=== PATIENT | male | born 1940 | race Caucasian/White ===

== ENCOUNTER → 2017-11-23 | Outpatient (CLI) | payer OTHER ==
[~2017-11-23] MED LIST: ASPI-496 PO; ASPI-696 PO; ATOR20TA9 PO; CLOP75TA PO; DOCU-131 PO; FURO20TA3 PO; HYDR-3245 PO; METH750T87 PO; METO25TA35 PO; METO25TA35 PO/NG; METO25TA91 PO; METO50TA82 PO; MIRT15TA4 PO; MULT-224 PO; MULT-464; OMEP-110 PO; ONDA4TAB10 PO; OXYC5CAP2 PO; POTA10TA5 PO; PYRI60TA PO; SIMV40TA3 PO; TRAM-47 PO; TRAM50TA2 PO
== END | disposition home or self-care (01) ==
LOC: CVU 09:47
PROVIDERS: ATTEND Internal Medicine Cardiovascular Disease
DX: I34.8 Other nonrheumatic mitral valve disorders (principal); I37.1 Nonrheumatic pulmonary valve insufficiency; I25.2 Old myocardial infarction; Z87.891 Personal history of nicotine dependence
CPT/HCPCS: 93306

== ENCOUNTER 2018-02-19 13:23 | Observation (INO) | payer OTHER ==
[~2018-02-19] VITALS: Ht 170.2 cm; Wt 91.8 kg
[~2018-02-19 13:23] MED LIST changes: +ATOR20TA37 PO; -ATOR20TA9 PO
[2018-02-19 14:11] LABS: BASOPHILS % (AUTO) 1 % (0-1); EOSINOPHILS % (AUTO) 0 % (1-7); LYMPHOCYTES % (AUTO) 7 % (22-44); MEAN PLATELET VOLUME 7.6 fL (7.4-10.4); MONOCYTES % (AUTO) 7 % (2-9); NEUTROPHILS % (AUTO) 85 % (42-75); PLATELET COUNT 242 x10^3/uL (130-400); RED BLOOD COUNT 4.79 x10^6/uL (4.38-5.82); RED CELL DISTRIBUTION WIDTH 13.2 % (9.4-14.8)
[2018-02-19 14:12] LABS: BASOPHILS # (AUTO) 0.18 x10^3/uL (0-0.1); EOSINOPHILS # (AUTO) 0.01 x10^3/uL (0-0.4); LYMPHOCYTES # (AUTO) 1.17 x10^3/uL (1-3.4); MD NO; MONOCYTES # (AUTO) 1.06 x10^3/uL (0.2-0.8); NEUTROPHILS # (AUTO) 13.75 x10^3/uL (1.8-6.8)
[2018-02-19 14:19] LABS: ALBUMIN 4.1 g/dL (3.4-5.0); ANION GAP 9 mmol/L (5-15); CALCIUM 8.9 mg/dL (8.5-10.1); CHLORIDE 104 mmol/L (98-107); CREATININE 1.05 mg/dL (0.7-1.3)
[2018-02-19] MEDS ORDERED: SODIUM CHLORIDE FLUSH 10ML SYR IVF ONE (14:30)
[2018-02-19] MEDS ORDERED: MORPHINE SULFATE 4 MG/ML, 1ML ONE ×2 (14:42→16:37)
[2018-02-19] MEDS: MORPHINE SULFATE 4 MG/ML, 1ML IVPush PRN ×2 (14:44→16:47)
[2018-02-19] MEDS ORDERED: GADOBUTROL 10 MMOL/10 ML PFS ONE (15:00)
[2018-02-19] MEDS ORDERED: OMNIPAQUE 350 MG/ML, 100ML BOTTLE ONE (16:45)
[2018-02-19 16:51] LABS: MICROSCOPIC NOT IND
[2018-02-19 17:01] LABS: CULTURE INDICATED? NO
[2018-02-19] MEDS ORDERED: HYDROmorphone 2 MG/ML, 1ML ONE (18:03)
[2018-02-19] MEDS ORDERED: HYDROmorphone 2 MG/ML, 1ML IVPush PRN (18:30)
[2018-02-19] MEDS ORDERED: ACETAMINOPHEN 325 MG TABLET PO PRN (19:00)
[2018-02-19] MEDS ORDERED: ONDANSETRON 2MG/ML, 2ML IVPush PRN (19:00)
[2018-02-19] MEDS ORDERED: BISACODYL 10 MG SUPP PR PRN (19:00)
[2018-02-19 20:17] VITALS: BP 154/88
[2018-02-19] MEDS: FUROSEMIDE 20 MG TABLET PO SCH (20:59)
[2018-02-19] MEDS: SODIUM CHLORIDE FLUSH 10ML SYR IVF SCH (21:00)
[2018-02-19] MEDS: METOPROLOL TARTRATE 25 MG TABLET PO SCH (21:00)
[2018-02-19] MEDS: OMEPRAZOLE 20 MG CAPSULE.DR PO SCH (22:05)
[2018-02-19] MEDS: DOCUSATE 100 MG CAPSULE PO SCH (22:05)
[2018-02-19] MEDS: POTASSIUM CHLORIDE 10 MEQ TABLET.ER PO SCH (22:05)
[2018-02-19] MEDS: HEPARIN 5,000 UNITS/ML, 1ML SQ SCH (22:08)
[2018-02-20 01:38] VITALS: BP 144/78
[2018-02-20] MEDS: KETOROLAC 30 MG/1 ML IVPush PRN ×4 (03:50→22:33)
[2018-02-20 04:42] LABS: BASOPHILS % (AUTO) 2 % (0-1); EOSINOPHILS # (AUTO) 0.03 x10^3/uL (0-0.4); EOSINOPHILS % (AUTO) 0 % (1-7); LYMPHOCYTES # (AUTO) 2.16 x10^3/uL (1-3.4); LYMPHOCYTES % (AUTO) 25 % (22-44); MD NO; MEAN CORPUSCULAR HEMOGLOBIN 31.8 pg (27.5-34.5); MEAN CORPUSCULAR HGB CONC 33.9 g/dL (33.2-36.2); MEAN PLATELET VOLUME 7.4 fL (7.4-10.4); MONOCYTES # (AUTO) 0.98 x10^3/uL (0.2-0.8); MONOCYTES % (AUTO) 11 % (2-9); NEUTROPHILS # (AUTO) 5.43 x10^3/uL (1.8-6.8); NEUTROPHILS % (AUTO) 62 % (42-75); PLATELET COUNT 196 x10^3/uL (130-400); RED BLOOD COUNT 4.45 x10^6/uL (4.38-5.82); RED CELL DISTRIBUTION WIDTH 13.4 % (9.4-14.8)
[2018-02-20 04:52] LABS: CALCIUM 8.9 mg/dL (8.5-10.1); CHLORIDE 108 mmol/L (98-107)
[2018-02-20 04:58] LABS: ALANINE AMINOTRANSFERASE 33 U/L (12-78); ALBUMIN 3.4 g/dL (3.4-5.0); ALKALINE PHOSPHATASE 102 U/L (45-117); ANION GAP 6 mmol/L (5-15); BILIRUBIN,TOTAL 0.6 mg/dL (0.2-1.0); CREATININE 0.89 mg/dL (0.7-1.3); TOTAL PROTEIN 6.6 g/dL (6.4-8.2)
[2018-02-20] MEDS: HEPARIN 5,000 UNITS/ML, 1ML SQ SCH ×3 (05:32→22:33)
[2018-02-20 08:00] VITALS: BP 115/70
[2018-02-20] MEDS: OMEPRAZOLE 20 MG CAPSULE.DR PO SCH ×2 (10:04→20:36)
[2018-02-20] MEDS: FUROSEMIDE 20 MG TABLET PO SCH ×2 (10:05→16:27)
[2018-02-20] MEDS: MULTIVITAMIN 1 TABLET PO SCH (10:05)
[2018-02-20] MEDS: METOPROLOL TARTRATE 25 MG TABLET PO SCH ×2 (10:06→20:36)
[2018-02-20] MEDS: ASPIRIN 81 MG TABLET EC PO SCH (10:06)
[2018-02-20] MEDS: POTASSIUM CHLORIDE 10 MEQ TABLET.ER PO SCH ×2 (10:07→20:36)
[2018-02-20] MEDS: SODIUM CHLORIDE FLUSH 10ML SYR IVF SCH ×2 (10:08→20:36)
[2018-02-20] MEDS: DOCUSATE 100 MG CAPSULE PO SCH ×2 (10:08→20:36)
[2018-02-20] MEDS: METHOCARBAMOL 750 MG TABLET PO PRN ×2 (13:11→22:33)
[2018-02-20 14:44] LABS: TROPONIN I < 0.015 ng/mL (0.000-0.045)
[2018-02-20] MEDS: POLYETHYLENE GLYCOL 17 GM PACKET PO PRN (16:36)
[2018-02-20 19:30] VITALS: BP 144/91
[2018-02-20 19:51] LABS: TROPONIN I < 0.015 ng/mL (0.000-0.045)
[2018-02-21 02:59] VITALS: BP 135/75
[2018-02-21 03:20] VITALS: BP 100/68
[2018-02-21] MEDS: HEPARIN 5,000 UNITS/ML, 1ML SQ SCH ×3 (06:22→21:14)
[2018-02-21 06:57] VITALS: BP 93/56
[2018-02-21] MEDS: POTASSIUM CHLORIDE 10 MEQ TABLET.ER PO SCH ×2 (08:04→21:13)
[2018-02-21] MEDS: DOCUSATE 100 MG CAPSULE PO SCH ×2 (08:04→21:13)
[2018-02-21] MEDS: FUROSEMIDE 20 MG TABLET PO SCH ×3 (08:04→21:12)
[2018-02-21] MEDS: ASPIRIN 81 MG TABLET EC PO SCH (08:04)
[2018-02-21] MEDS: SODIUM CHLORIDE FLUSH 10ML SYR IVF SCH ×2 (08:04→21:12)
[2018-02-21] MEDS: OMEPRAZOLE 20 MG CAPSULE.DR PO SCH ×2 (08:04→21:13)
[2018-02-21] MEDS: MULTIVITAMIN 1 TABLET PO SCH (08:05)
[2018-02-21] MEDS: POLYETHYLENE GLYCOL 17 GM PACKET PO PRN (08:05)
[2018-02-21] MEDS: METOPROLOL TARTRATE 25 MG TABLET PO SCH ×2 (08:06→21:13)
[2018-02-21] MEDS: LIDOCAINE 4% CREAM 5GM TUBE TP SCH ×3 (10:32→21:14)
[2018-02-21] MEDS: GABAPENTIN 100 MG CAPSULE PO SCH ×2 (10:33→21:12)
[2018-02-21] MEDS: NAPROXEN 500 MG TABLET PO SCH ×2 (10:33→21:13)
[2018-02-21] MEDS: CYCLOBENZAPRINE 10 MG TABLET PO SCH ×2 (10:33→21:14)
[2018-02-21 12:12] VITALS: BP 125/75
[2018-02-21] MEDS: KETOROLAC 30 MG/1 ML IVPush PRN (18:13)
[2018-02-21 20:59] VITALS: BP 118/73
[2018-02-22 03:35] VITALS: BP 101/63
[2018-02-22] MEDS: HEPARIN 5,000 UNITS/ML, 1ML SQ SCH (05:24)
[2018-02-22 07:58] VITALS: BP 124/78
[2018-02-22] MEDS: NAPROXEN 500 MG TABLET PO SCH (10:31)
[2018-02-22] MEDS: ASPIRIN 81 MG TABLET EC PO SCH (10:31)
[2018-02-22] MEDS: MULTIVITAMIN 1 TABLET PO SCH (10:31)
[2018-02-22] MEDS: POTASSIUM CHLORIDE 10 MEQ TABLET.ER PO SCH (10:31)
[2018-02-22] MEDS: CYCLOBENZAPRINE 10 MG TABLET PO SCH (10:31)
[2018-02-22] MEDS: DOCUSATE 100 MG CAPSULE PO SCH (10:31)
[2018-02-22] MEDS: POLYETHYLENE GLYCOL 17 GM PACKET PO PRN (10:32)
[2018-02-22] MEDS: METOPROLOL TARTRATE 25 MG TABLET PO SCH (10:32)
[2018-02-22] MEDS: GABAPENTIN 100 MG CAPSULE PO SCH (10:32)
[2018-02-22] MEDS: FUROSEMIDE 20 MG TABLET PO SCH (10:32)
[2018-02-22] MEDS: OMEPRAZOLE 20 MG CAPSULE.DR PO SCH (10:32)
[2018-02-22] MEDS: LIDOCAINE 4% CREAM 5GM TUBE TP SCH (10:33)
[2018-02-22] MEDS: SODIUM CHLORIDE FLUSH 10ML SYR IVF SCH (10:33)
[2018-02-22] MEDS ORDERED: CYCL-259 PO (10:48)
[2018-02-22] MEDS ORDERED: NAPR-856 PO (10:48)
[2018-02-22] MEDS ORDERED: GABA-826 PO (10:48)
[2018-02-22] MEDS ORDERED: LIDO5CRE19 TP (10:48)
[2018-02-22 12:56] VITALS: BP 118/74
== END 2018-02-22 14:10 | disposition home or self-care (01) ==
LOC: ED 16:58 → INTOOBSV 17:52 → EDIP 17:52 → 3NW 18:29 → DCLOUNGE 02-22 13:40
PROVIDERS: ADMIT Family Medicine; ATTEND Family Medicine
DX: M48.56XA Collapsed vertebra, not elsewhere classified, lumbar region, initial encounter for fracture (principal); K21.9 Gastro-esophageal reflux disease without esophagitis; I11.0 Hypertensive heart disease with heart failure; I50.9 Heart failure, unspecified; I25.10 Atherosclerotic heart disease of native coronary artery without angina pectoris; Z95.1 Presence of aortocoronary bypass graft; Z86.73 Personal history of transient ischemic attack (TIA), and cerebral infarction without residual deficits; Z79.82 Long term (current) use of aspirin; Z79.899 Other long term (current) drug therapy
CPT/HCPCS: 36415; 72131; 72158; 74177; 80048; 80053; 81003; 82040; 84484; 85025; 85651; 93005; 96372; 96374; 96375; 96376; 97163; 99284; A9585; G0378; J1170; J1644; J1885; Q9967; 99285

== ENCOUNTER 2018-03-02 11:22 | Emergency (ER) | payer OTHER ==
[~2018-03-02] VITALS: Ht 170.2 cm; Wt 89.0 kg
[~2018-03-02 11:22] MED LIST changes: +CYCL-259 PO; +GABA-826 PO; +LIDO5CRE19 TP; +NAPR-856 PO
[2018-03-02 13:45] VITALS: BP 150/77
[2018-03-02] MEDS ORDERED: DEXAMETHASONE 4 MG/ML, 1ML IM ONE (14:00)
[2018-03-02] MEDS ORDERED: KETOROLAC 60 MG/2 ML IM ONE (14:00)
[2018-03-02] MEDS ORDERED: OXYcodone/APAP 10/325MG TABLET PO ONE (14:00)
[2018-03-02] MEDS ORDERED: OXYcodone/APAP 10/325MG TABLET ONE (14:03)
[2018-03-02] MEDS ORDERED: KETOROLAC 30 MG/1 ML ONE (14:03)
[2018-03-02] MEDS ORDERED: DEXAMETHASONE 4 MG/ML, 1ML ONE (14:05)
== END 2018-03-02 14:54 | disposition home or self-care (01) ==
LOC: ED 14:40
DX: S32.040A Wedge compression fracture of fourth lumbar vertebra, initial encounter for closed fracture (principal); I10 Essential (primary) hypertension; I25.10 Atherosclerotic heart disease of native coronary artery without angina pectoris; K21.9 Gastro-esophageal reflux disease without esophagitis; Z86.73 Personal history of transient ischemic attack (TIA), and cerebral infarction without residual deficits; Z95.1 Presence of aortocoronary bypass graft; Z98.61 Coronary angioplasty status; W18.30XA Fall on same level, unspecified, initial encounter; Y93.89 Activity, other specified; Y92.89 Other specified places as the place of occurrence of the external cause; Y99.8 Other external cause status
CPT/HCPCS: 72110; 73502; 96372; 99283; J1100; J1885

== ENCOUNTER → 2018-04-02 | Outpatient (CLI) | payer MEDICARE ==
[~2018-04-02] MED LIST changes: +ATOR40TA78 PO; +IRON PO; -MULT-224 PO; +MULT-642 PO; +NAPR-685 PO; +OXYC-432 PO; +POTA10TA12 PO
== END | disposition home or self-care (01) ==
LOC: RAD 12:34
PROVIDERS: ATTEND Neurological Surgery
DX: M80.88XA Other osteoporosis with current pathological fracture, vertebra(e), initial encounter for fracture (principal); Z53.9 Procedure and treatment not carried out, unspecified reason
CPT/HCPCS: 22515

== ENCOUNTER 2018-04-03 12:22 | Day surgery (SDC) | payer MEDICARE ==
[~2018-04-03] VITALS: Ht 170.2 cm; Wt 82.0 kg
[~2018-04-03 12:22] MED LIST changes: -ATOR40TA78 PO; -IRON PO; -NAPR-685 PO; -OXYC-432 PO; -POTA10TA12 PO
[2018-04-03] MEDS ORDERED: FENTANYL PF 250 MCG/5ML ONE (12:51)
[2018-04-03] MEDS ORDERED: LACTATED RINGERS 1,000 ML IV SCH (12:54)
[2018-04-03] MEDS ORDERED: LIDOCAINE-MPF 1%, 2ML INFIL ONE (13:00)
[2018-04-03] MEDS ORDERED: CEFAZOLIN 1,000 MG in SODIUM CHLORIDE 0.9% 50 ML IV SCH (13:00)
[2018-04-03] MEDS ORDERED: CEFAZOLIN 1,000 MG in SODIUM CHLORIDE 0.9% 50 ML IV ONE (13:00)
[2018-04-03 13:16] VITALS: BP 149/86
[2018-04-03] MEDS ORDERED: PLEASE ENTER HEIGHT AND WEIGHT MC SCH (13:30)
[2018-04-03] MEDS ORDERED: ATOR40TA78 PO (14:02)
[2018-04-03] MEDS ORDERED: POTA10TA12 PO (14:02)
[2018-04-03] MEDS ORDERED: NAPR-685 PO (14:02)
[2018-04-03] MEDS ORDERED: OXYC-432 PO (14:02)
[2018-04-03] MEDS ORDERED: METO25TA35 PO (14:02)
[2018-04-03] MEDS ORDERED: ASPI-496 PO (14:04)
[2018-04-03] MEDS ORDERED: FURO20TA3 PO (14:04)
[2018-04-03] MEDS ORDERED: IRON PO (14:06)
[2018-04-03] MEDS ORDERED: PROPOFOL 10 MG/ML, 20ML ONE (14:26)
[2018-04-03] MEDS ORDERED: CEFAZOLIN 1,000 MG ONE (14:26)
[2018-04-03] MEDS ORDERED: ONDANSETRON 2MG/ML, 2ML ONE (14:26)
[2018-04-03] MEDS ORDERED: EPHEDRINE 50 MG/ML, 1ML ONE (14:26)
[2018-04-03] MEDS ORDERED: DEXAMETHASONE 4 MG/ML, 1ML ONE (14:26)
[2018-04-03] MEDS ORDERED: SUCCINYLCHOLINE 20 MG/ML, 10ML ONE (14:26)
[2018-04-03] MEDS ORDERED: ROCURONIUM 10 MG/ML,10ML ONE (14:26)
[2018-04-03] MEDS ORDERED: LIDOCAINE-MPF 1%, 5ML ONE (14:48)
[2018-04-03] MEDS ORDERED: OXYcodone 5 MG/5 ML ORAL.SOL UDC ONE (15:53)
[2018-04-03] MEDS ORDERED: HYDROmorphone 2 MG/ML, 1ML IVPush PRN (16:00)
[2018-04-03] MEDS ORDERED: OXYcodone 5 MG/5 ML ORAL.SOL UDC PO PRN (16:00)
[2018-04-03] MEDS ORDERED: FENTANYL PF 100 MCG/2ML IV PRN (16:00)
[2018-04-03] MEDS ORDERED: LABETALOL 5MG/ML, 20ML IV PRN (16:00)
[2018-04-03] MEDS ORDERED: hydrALAzine 20 MG/ML, 1ML IV PRN (16:00)
[2018-04-03] MEDS ORDERED: ONDANSETRON 2MG/ML, 2ML IV PRN (16:00)
[2018-04-03] MEDS ORDERED: DIAZEPAM 5 MG/ML, 10ML VIAL IV ONE (16:00)
[2018-04-03] MEDS ORDERED: ONDANSETRON ODT 8 MG PO PRN (16:00)
[2018-04-03] MEDS ORDERED: ACETAMINOPHEN 325 MG TABLET PO PRN (16:00)
[2018-04-04 06:35] VITALS: BP 116/69
== END 2018-04-03 17:50 | disposition home or self-care (01) ==
LOC: OUT 12:22 → EDSTATUS 14:30 → 4NOR 16:54 → OUT 17:50
PROVIDERS: ATTEND Neurological Surgery
DX: M80.88XA Other osteoporosis with current pathological fracture, vertebra(e), initial encounter for fracture (principal); I25.10 Atherosclerotic heart disease of native coronary artery without angina pectoris; J44.9 Chronic obstructive pulmonary disease, unspecified; Z87.39 Personal history of other diseases of the musculoskeletal system and connective tissue; Z95.5 Presence of coronary angioplasty implant and graft; Z98.84 Bariatric surgery status; Z95.0 Presence of cardiac pacemaker; Z98.52 Vasectomy status; Z87.891 Personal history of nicotine dependence; Z72.89 Other problems related to lifestyle; Z79.82 Long term (current) use of aspirin
CPT/HCPCS: 22511; J0330; J0690; J1100; J2405; J2704; J3010; J3360; 22514; G0378

== ENCOUNTER → 2018-05-14 | Outpatient (CLI) | payer MEDICARE, MEDICAID ==
[~2018-05-14] MED LIST changes: +ATOR40TA78 PO; +IRON PO; +NAPR-685 PO; +OXYC-432 PO; +POTA10TA12 PO
== END | disposition home or self-care (01) ==
LOC: CFH 07:54
PROVIDERS: ATTEND Neurological Surgery
DX: M16.11 Unilateral primary osteoarthritis, right hip (principal); M81.0 Age-related osteoporosis without current pathological fracture; M54.5 Low back pain
CPT/HCPCS: 77080

== ENCOUNTER 2019-04-05 18:17 | Emergency (ER) | payer MEDICARE, MEDICAID ==
[~2019-04-05] VITALS: Ht 170.2 cm; Wt 89.0 kg
[~2019-04-05 18:17] MED LIST changes: +DICL75TA3 PO; -LIDO5CRE19 TP; +LIDO5CRE26 TP; +MIRT-34 PO; -MIRT15TA4 PO
--- NOTE | 2019-04-05 18:36 | NUR ---
PT BIB [facility] PT PRESENTED TO [facility] W C/O SINUS CONGESTION X 2 DAYS THAT DEVELOPED INTO R JAW PAIN NORMAL RESP TALKING IN COMPLETE SENTENCES
--- NOTE | 2019-04-05 19:02 | NUR ---
LAB AT BEDSIDE.
[2019-04-05 19:24] LABS: ALBUMIN 3.6 g/dL (3.4-5.0); ANION GAP 3 mmol/L (5-15); CALCIUM 8.9 mg/dL (8.5-10.1); CHLORIDE 108 mmol/L (98-107); CREATININE 0.88 mg/dL (0.7-1.3)
[2019-04-05 19:27] LABS: BASOPHILS # (AUTO) 0.03 x10^3/uL (0-0.1); BASOPHILS % (AUTO) 0 % (0-1); EOSINOPHILS # (AUTO) 0.36 x10^3/uL (0-0.4); EOSINOPHILS % (AUTO) 5 % (1-7); LYMPHOCYTES # (AUTO) 1.46 x10^3/uL (1-3.4); LYMPHOCYTES % (AUTO) 20 % (22-44); MD NO; MEAN CORPUSCULAR HEMOGLOBIN 31.4 pg (27.5-34.5); MEAN CORPUSCULAR HGB CONC 33.4 g/dL (33.2-36.2); MEAN CORPUSCULAR VOLUME 93.9 fL (81-97); MEAN PLATELET VOLUME 7.4 fL (7.4-10.4); MONOCYTES # (AUTO) 0.83 x10^3/uL (0.2-0.8); MONOCYTES % (AUTO) 11 % (2-9); NEUTROPHILS # (AUTO) 4.78 x10^3/uL (1.8-6.8); NEUTROPHILS % (AUTO) 64 % (42-75); PLATELET COUNT 209 x10^3/uL (130-400); RED CELL DISTRIBUTION WIDTH 13.5 % (9.4-14.8)
[2019-04-05 19:29] LABS: HCT (SEDRATE) 41.3 % (39.2-51.8)
[2019-04-05] MEDS ORDERED: SODIUM CHLORIDE FLUSH 10ML SYR IVF ONE (19:30)
[2019-04-05] MEDS ORDERED: OMNIPAQUE 350 MG/ML, 100ML BOTTLE ONE (20:00)
[2019-04-05 20:16] VITALS: BP 111/81
--- NOTE | 2019-04-05 20:16 | NUR ---
ALL RESULTS ARE BACK AT THIS TIME. CHART UP FOR RECHECK.
== END 2019-04-05 22:08 | disposition home or self-care (01) ==
LOC: ED 18:25
DX: K11.21 Acute sialoadenitis (principal); H92.01 Otalgia, right ear; I10 Essential (primary) hypertension; I25.10 Atherosclerotic heart disease of native coronary artery without angina pectoris; K21.9 Gastro-esophageal reflux disease without esophagitis; Z86.73 Personal history of transient ischemic attack (TIA), and cerebral infarction without residual deficits
CPT/HCPCS: 36415; 70487; 80048; 82040; 85025; 85651; 86308; 93005; 99284; Q9967